=== PATIENT | female | born 1975 | race Caucasian/White ===

== ENCOUNTER → 2020-10-27 | Outpatient (REF) ==
--- NOTE | 2020-10-27 12:43 | REP ---
INDICATION: AUTOPSY COMPARISON: None. TECHNIQUE: Portable AP view of the chest FINDINGS: Lung edwards demonstrate diffuse bilateral opacities and multiple bilateral rib fractures. IMPRESSION: Bilateral opacities and rib fractures. <Electronically signed by Poli Barkley > 10/27/20 [id number]
--- NOTE | 2020-10-27 12:47 | REP ---
INDICATION: AUTOPSY COMPARISON: None. TECHNIQUE: Portable AP and lateral views of the skull FINDINGS: Linear lucencies through the calvarium suggest nondisplaced fractures. IMPRESSION: Suspected nondisplaced fractures of the calvarium.. <Electronically signed by Poli Barkley > 10/27/20 [id number]
--- NOTE | 2020-10-27 12:49 | REP ---
INDICATION: AUTOPSY COMPARISON: None. TECHNIQUE: Single AP view of the pelvis. FINDINGS: Osseous structures and joint spaces are intact and normal. No evidence for acute fracture or dislocation. IMPRESSION: No fracture or dislocation. <Electronically signed by Poli Barkley > 10/27/20 [id number]
--- NOTE | 2020-10-27 12:49 | REP ---
INDICATION: AUTOPSY. COMPARISON: None. TECHNIQUE: Portable AP and lateral views of the cervical spine FINDINGS: Alignment is maintained. No cervical vertebral body fracture/compression injury or subluxation noted. Surrounding soft tissues are grossly unremarkable. IMPRESSION: Relatively normal cervical spine radiographs. <Electronically signed by Poli Barkley > 10/27/20 2017
[2020-10-27 19:40] LABS: RSV AMPLIFICATION NEGATIVE (NEGATIVE)
== END ==
LOC: M LAB 10:08